=== PATIENT | male | born 2000 | race Caucasian/White ===

== ENCOUNTER → 2020-07-20 | Outpatient (CLI) | payer OTHER ==
--- NOTE | 2020-07-20 13:07 | Diagnostic Imaging Report ---
PROCEDURE: MRI right joint lower extremity without contrast. TECHNIQUE: Multiplanar, multisequence non contrast-enhanced MRI of the right lower extremity was accomplished. INDICATION: Right knee pain since June. COMPARISON: None FINDINGS: No acute fracture or dislocation is seen in the right knee. Alignment appears normal. Joint spaces are preserved. There is no joint effusion. The articular cartilage in the patellofemoral compartment appears intact. The articular cartilage in the medial and lateral compartments are intact. There is increased signal in the posterior horn of the medial meniscus. This signal does appear to contact the inferior articular surface of the meniscus, but on a single image only. The lateral meniscus is intact. The anterior and posterior cruciate ligaments are intact. The medial collateral ligament and the lateral collateral ligamentous complex are intact. The extensor mechanism is intact. The medial and lateral retinacula are intact. Soft tissues about the knee are otherwise unremarkable. IMPRESSION: 1. Possible tear at the posterior medial meniscus of the right knee, seen on a single image. Dictated by: Dictated on workstation # [id number]
== END ==
LOC: RAD 09:51
PROVIDERS: ATTEND Orthopaedic Surgery
DX: M25.561 Pain in right knee (principal)
CPT/HCPCS: 73721